=== PATIENT | male | born 1990 | race African-American/Black ===

== ENCOUNTER 2022-06-18 13:27 | Emergency (ER) | payer OTHER ==
[~2022-06-18] VITALS: Ht 193 cm; Wt 97.7 kg
[2022-06-18 13:27] VITALS: BP 121/58
[2022-06-18] MEDS ORDERED: ADVIL (13:32)
[2022-06-18] MEDS ORDERED: ACETAMINOPHEN 500 MG TAB PO ONE (18:35)
== END 2022-06-18 18:59 | disposition home or self-care (01) ==
LOC: M ED 13:27
DX: S93.402A Sprain of unspecified ligament of left ankle, initial encounter (principal); M54.50 Low back pain, unspecified; F10.10 Alcohol abuse, uncomplicated; Y92.009 Unspecified place in unspecified non-institutional (private) residence as the place of occurrence of the external cause; Y93.01 Activity, walking, marching and hiking; Y99.9 Unspecified external cause status

== ENCOUNTER 2022-12-12 06:26 | Emergency (ER) | payer OTHER ==
[~2022-12-12] VITALS: Ht 193 cm; Wt 110.3 kg
[2022-12-12 06:26] VITALS: BP 126/79
[~2022-12-12 06:26] MED LIST: ADVIL
[2022-12-12] MEDS ORDERED: ACETAMINOPHEN 500 MG TAB PO ONE (08:35)
[2022-12-12] MEDS ORDERED: CYCL5TAB PO (10:04)
[2022-12-12] MEDS ORDERED: LIDO5DIS41 TOP (10:04)
== END 2022-12-12 10:13 | disposition home or self-care (01) ==
LOC: M ED 06:26
DX: S06.0X0A Concussion without loss of consciousness, initial encounter (principal); S16.1XXA Strain of muscle, fascia and tendon at neck level, initial encounter; D18.09 Hemangioma of other sites; V47.0XXA Car driver injured in collision with fixed or stationary object in nontraffic accident, initial encounter; R51.9 Headache, unspecified; M54.50 Low back pain, unspecified; K21.9 Gastro-esophageal reflux disease without esophagitis; F10.10 Alcohol abuse, uncomplicated; Z88.6 Allergy status to analgesic agent; Z79.891 Long term (current) use of opiate analgesic